=== PATIENT | female | born 1990 | race Caucasian/White ===

== ENCOUNTER 2023-05-20 06:58 | Emergency (ER) | payer OTHER ==
[~2023-05-20] VITALS: Ht 175.3 cm; Wt 66.0 kg
[2023-05-20 07:02] VITALS: TEMP 98.3; O2SAT 100
[2023-05-20 08:45] VITALS: BP 113/80; PULSE 68; RESP 18
[2023-05-20] MEDS ORDERED: DIPHENHYDRAMINE 50MG/ML VIAL IM ONE (08:45)
[2023-05-20] MEDS ORDERED: PROCHLORPERAZINE 10MG/2ML VIAL IM ONE (08:45)
[2023-05-20] MEDS ORDERED: KETOROLAC 60MG/2ML VIAL IM ONE (08:45)
[2023-05-20] MEDS ORDERED: DEXAMETHASONE 4MG/ML 1ML VIAL IM ONE (08:45)
== END 2023-05-20 12:46 | disposition home or self-care (01) ==
LOC: ER 06:58
DX: G43.909 Migraine, unspecified, not intractable, without status migrainosus (principal)
CPT/HCPCS: 96372; 99284; J1100; J1200; J1885; J0780; Z7610 ×2